=== PATIENT | female | born 1955 | race African-American/Black ===

== ENCOUNTER → 2016-08-07 | Outpatient (CLI) | payer OTHER ==
--- NOTE | ~2016-08-07 | MR122 ---
[facility] A Service of [facility] RADIOLOGY TEXT RESULTS PATIENT: WALLY MCMAHON LOCATION: CMRI : 54 UNIT #: [id number] AGE: [address]: Calvin Abdalla II, MD SEX: F ORDER DR: [id number] [facility] [address] [place], [place] [address] [id number] O MR#: [id number] Acc #: [id number] NAME: WALLY MCMAHON : 1955 SEX: F STUDY DATE/TIME: 08/07/2016 9:48 UNIT: CMRI ROOM: STUDY DESCRIPTION: MR MRA Head Wo Contrast Attending Physician: Calvin Abdalla II., M.D. Ordering Physician: Calvin Abdalla II., M.D. Primary Care Physician: Eliz Adams Aprn MRI CENTER REPORT This report is preliminary unless electronic signature is present. EXAM MR angiogram of the head without contrast dated 08/07/2016 COMPARISON MRI brain and MRA neck dated 08/07/2016. HISTORY Dizziness and visual disturbance for one year. Patient has headaches and confusions at times when having visual disturbance. She feels dizzy when she gets up fast. FINDINGS Source and 3-D reconstruction MIP images of the [place] was obtained without contrast. Bilateral intracranial internal carotid arteries, anterior and middle cerebral arteries demonstrate normal expected course, caliber and flow. No obvious significant stenosis, aneurysm or AVM is seen. The posterior circulation demonstrates normal basilar artery, bilateral posterior cerebral arteries and visualized distal V4 segments of the vertebral arteries. 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 Congenital variant. A tiny ACOM is probably present. Right PCOM is not seen. IMPRESSION 1. No significant stenosis aneurysm or AVM. Dictated by... Bonnie Mcbride M.D. THIS IS AN ELECTRONICALLY VERIFIED REPORT [facility] A Service of [facility] RADIOLOGY TEXT RESULTS PATIENT: WALLY MCMAHON LOCATION: CMRI : 54 UNIT #: [id number] AGE: [address]: Calvin Abdalla II, MD SEX: F ORDER DR: Bonnie Mcbride M.D. at 08/07/2016 5:22 PM CPR/rnr TD: 08/07/2016 13:02 JOB #: [id number] MRI CENTER REPORT Page 1 of 1 COPY
--- NOTE | ~2016-08-07 | MR134 ---
[facility] A Service of [facility] RADIOLOGY TEXT RESULTS PATIENT: WALLY MCMAHON LOCATION: CMRI : 54 UNIT #: [id number] AGE: [address]: Calvin Abdalla II, MD SEX: F ORDER DR: [id number] [facility] [address] [place], [place] [address] [id number] O MR#: [id number] Acc #: [id number] NAME: WALLY MCMAHON : 1955 SEX: F STUDY DATE/TIME: 08/07/2016 9:29 UNIT: CMRI ROOM: STUDY DESCRIPTION: MR MRA Neck Wo Contrast Attending Physician: Calvin Abdalla II., M.D. Ordering Physician: Calvin Abdalla II., M.D. Primary Care Physician: Eliz Adams Aprn MRI CENTER REPORT This report is preliminary unless electronic signature is present. EXAM MR angiogram of the neck without contrast dated 08/07/2016 COMPARISON MRI MRA brain dated 08/07/2016 HISTORY Dizziness and visual disturbance for one year. History of headaches, confusion when visual disturbances happen. Patient gets dizzy when she gets up too fast. FINDINGS Source and 3-D reconstruction MIP image of the neck arteries were obtained without contrast. 3-vessel aortic arch is seen. Bilateral common, internal and external carotid arteries demonstrate normal expected course, caliber and flow. Vertebral arteries are codominant. No focal significant stenosis, aneurysm or AVM is seen. IMPRESSION 1. No hemodynamically flow-limiting significant stenosis in bilateral internal carotid artery bulbs per NASCET criteria. 2. Vertebral arteries are codominant. 3. No aneurysm or AVM. Dictated by... Bonnie Mcbride M.D. THIS IS AN ELECTRONICALLY VERIFIED REPORT Bonnie Mcbride M.D. at 08/07/2016 3:49 PM CPR/rnr [facility] A Service of [facility] RADIOLOGY TEXT RESULTS PATIENT: WALLY MCMAHON LOCATION: CMRI : 54 UNIT #: [id number] AGE: [address]: Calvin Abdalla II, MD SEX: F ORDER DR: TD: 08/07/2016 13:18 JOB #: [id number] MRI CENTER REPORT Page 1 of 1 COPY
--- NOTE | ~2016-08-07 | EE ---
Unit #: [id number] #: [id number] Patient: WALLY MCMAHON [id number] [address] [address] [id number] O MR#: [id number] NAME: WALLY MCMAHON : 1955 SEX: F STUDY DATE/TIME: 08/07/2016 UNIT: CMRI ROOM: STUDY DESCRIPTION: EEG Attending Physician: Calvin Abdalla II., M.D. Primary Care Physician: Eliz Adams Aprn NEURODIAGNOSTICS REPORT EXAM EEG. REASON FOR STUDY Seizures. TECH Hilda. TECHNICAL INFORMATION This is a routine EEG performed using standard International 10-20 system electrode placement. Hyperventilation was performed. Photic stimulation was also performed. REPORT Throughout the entire study, the best background rhythm seen is approximately 9 to 10 Hz. This rhythm was seen in both posterior head regions symmetrically and does attenuate to eye opening and closure. Photic stimulation was performed which did not elicit any epileptiform abnormalities. Hyperventilation was also performed which failed to reproduce any abnormal buildup. Throughout the entire study, there were no electrocardiographic seizures recorded nor where there any discrete independent epileptiform abnormality seen. INTERPRETATION This is a normal awake EEG. A normal EEG does not rule out the possibility of seizure disorder. Clinical correlation is advised. Dictated by... Calvin Abdalla II., M.D. GWS/bessie TD: 08/13/2016 09:31 JOB #: [id number] Unit #: [id number] #: [id number] Patient: WALLY MCMAHON NEURODIAGNOSTICS REPORT Page 1 of 1 X NEURODIAGNOSTICS REPORT
--- NOTE | ~2016-08-07 | MR17 ---
[facility] A Service of [facility] RADIOLOGY TEXT RESULTS PATIENT: WALLY MCMAHON LOCATION: CMRI : 54 UNIT #: [id number] AGE: [address]: Calvin Abdalla II, MD SEX: F ORDER DR: [id number] [facility] [address] [place], [place] [address] [id number] O MR#: [id number] Acc #: [id number] NAME: WALLY MCMAHON : 1955 SEX: F STUDY DATE/TIME: 08/07/2016 10:00 UNIT: CMRI ROOM: STUDY DESCRIPTION: MR Brain WWo Contrast Attending Physician: Calvin Abdalla II., M.D. Ordering Physician: Calivn Abdalla II., M.D. Primary Care Physician: Eliz Adams Aprn MRI CENTER REPORT This report is preliminary unless electronic signature is present. EXAM MRI of the brain with and without contrast dated 08/07/2016 COMPARISON MRI head and neck dated 08/07/2016. HISTORY Dizziness and visual disturbance for 1 year. Headaches and confusion at times when having the visual disturbance. She gets dizzy when she gets up fast. FINDINGS Multisequence, multiplanar imaging of the brain was obtained with and without contrast. GFR measured greater than 60. 12 mL of MultiHance was administered intravenously. No acute stroke, enhancing intracranial mass, mass effect, midline shift or hydrocephalus is seen. There are increased T2 signal lesions scattered in the subcortical and periventricular white matter with a relatively larger component in the left parietal lobe within the subcortical and cortical region. It has some enhancing vessel in this region. There is no mass effect and it appears to be chronic insult. There are no old studies for comparison. Thick slices through the sella with the pituitary gland, pineal region and upper cervical spine do not demonstrate any significant abnormality. Nasal septum is deviated to the right. Paranasal sinuses, orbits with the ocular structures, and mastoids do not demonstrate any significant abnormality. Postcontrast sequences demonstrate no enhancing lesions. IMPRESSION 1. No acute intracranial abnormality or enhancing mass. 2. Increased T2 signal nonenhancing nonspecific lesions are noted in the brain involving the white matter, likely related to mild chronic microvascular ischemic change or migraine based on age and statistics. [facility]. [facility] A Service of [facility] RADIOLOGY TEXT RESULTS PATIENT: WALLY MCMAHON LOCATION: CMRI : 54 UNIT #: [id number] AGE: [address]: Calvin Abdalla II, MD SEX: F ORDER DR: 3. Relatively prominent T2 signal change is noted in the left parietal cortex and underlying subcortical white matter, close to the parietooccipital junction. It has features favoring a chronic insult. Dictated by... Bonnie Mcbride M.D. THIS IS AN ELECTRONICALLY VERIFIED REPORT Bonnie Mcbride M.D. at 08/07/2016 3:49 PM CPR/shayna TD: 08/07/2016 13:12 JOB #: [id number] MRI CENTER REPORT Page 1 of 1 COPY
[2016-08-07 09:28] LABS: POC - CREATININE 0.95 mg/dL (0.44-1.03); POC - GFR >60.0 mL/min (>60)
== END | disposition home or self-care (01) ==
LOC: CMRI 08:42
PROVIDERS: Psychiatry & Neurology Neurology
DX: H53.9 Unspecified visual disturbance (principal); R90.82 White matter disease, unspecified
CPT/HCPCS: 70544; 70547; 70553; 82565; 95816; A9577